=== PATIENT | female | born 2000 | race Caucasian/White ===

== ENCOUNTER 2019-09-20 23:10 | Emergency (ER) | payer MEDICAID, SELFPAY ==
[2019-09-20 23:13] VITALS: BP 126/81; PULSE 107; RESP 16; TEMP 36.6; O2SAT 97; BMI 38.6
--- NOTE | 2019-09-21 00:40 | ED_ITS ---
Entered by Jagruti Wahl, acting as scribe for Rachael Smith Lizy Sep 20, 2019 23:10 HPI - Abdominal Pain General: Chief Complaint: Abdominal Pain Stated Complaint: abd pain Time Seen by Provider: 09/21/19 00:40 Source: patient and family Mode of arrival: ambulatory History of Present Illness: HPI narrative: 19 y/o female presents to the ED with complaint of abd pain for the past 3 days. Pt states it has been constant and she has had N/V/D. Pt denies any recent abx use or abd surgeries. MD elicited complaint: abdominal pain Onset (ago): day(s) (3) Pain Consistency: constant Location: Diffuse and Other Severity: severe Quality: stabbing and sharp Exacerbating factors: movement Relieving factors: nothing Associated Symptoms: Denies chills, dysuria, fever(s), hematuria and syncope Related Data: Date of Last Menstrual Period: 09/09/19 Review of Systems General: Reports: other (negative unless marked) Const: Denies: fever, chills, body aches, fatigue, malaise or diaphoresis Eyes: Denies: change in vision or blurry vision ENMT: Denies: throat pain, painful swallowing, hoarseness, ear pain, ear discharge, Change in hearing or nasal discharge Card: Denies: chest pain, palpitations, irregular heart rhythm, syncope, pre- syncope, shortness of breath on exertion or shortness of breath when lying down Resp: Denies: shortness of breath, productive cough, non-productive cough, wheezing, coughing up blood or chest congestion : Denies: flank pain, painful urination, urinary frequency, urinary urgency, decreased urine ouput, urinary incontinence or blood in urine Musc: Denies: neck pain, back pain, extremity pain, extremity swelling, joint pain, joint swelling, joint warmth or joint stiffness Skin/Breast: Denies: rash, skin tenderness or yellow skin Neuro: Denies: headache, numbness in extremities, weakness in extremities, changes in sensation, lack of coordination, difficulty walking, dizziness, vertigo or confusion Endo: Denies: excessive thirst, tired all the time, cold intolerance, excessive sweating, flushing or hot flashes Andrea/Lymph: Denies: easy bruising, easy bleeding, petechiae or enlarged lymph nodes All/Imm: Denies: hives, throat swelling, tongue swelling, facial swelling or acute wheezing PFSH ED PFSH: Social History Smoking and tobacco status: never smoked Female Reproductive History: Date of last menstrual period: 09/09/19 Physical Exam Const: EXAM LIMITATIONS: no altered mental status GENERAL APPEARANCE: well kempt and well developed ORIENTATION/CONSCIOUSNESS: Yes awake HENMT: COMMON NORMALS: normocephalic, head/scalp atraumatic, hearing grossly normal bilaterally, external ears normal, EAC's normal, external nose normal and moist oral mucous membranes HEAD & SCALP: normal to inspection, normocephalic and atraumatic FACE & SINUS: normal facial exam and face symmetric NOSE: external nose normal and nares normal EXTERNAL EAR: Yes external ears normal EXTERNAL AUDITORY CANAL: EAC's normal MOUTH: oral and palatal mucosa normal and tongue normal Eye: COMMON NORMALS: PERRL, EOMs intact bilaterally, conjunctivae normal and no scleral icterus GENERAL EYE: normal appearance of both eyes and normal light reflex CONJUNCTIVA: Yes conjunctivae normal SCLERA: sclerae normal CORNEA: Yes corneas normal PUPIL: Yes PERRL DIRECT OPHTHALMOSCOPY: Yes normal light reflex Neck/C-Spine: COMMON NORMALS: full ROM, no lymphadenopathy, supple, no meningeal signs and no JVD GENERAL: Yes normal visual inspection and Yes trachea midline CERVICAL SPINE: Yes cervical ROM normal Chest: COMMONS NORMALS: inspection of chest normal and palpation of chest normal Resp: COMMON NORMALS: normal respiratory effort, no retractions, no use of accessory muscles and clear to auscultation bilaterally EFFORT & INSPECTION: Yes able to speak in complete sentences AUSCULTATION: clear to auscultation bilaterally Cardio: COMMON NORMALS: no JVD, regular rate, regular rhythm, S1 normal heart sound, S2 normal heart sound, no gallops, no clicks, no murmurs and no rub JUGULAR VENOUS DISTENTION: no JVD RATE: regular rate RHYTHM: regular rhythm HEART SOUNDS: S1 normal and S2 normal : COMMON NORMALS: Yes no CVA tenderness BLADDER/KIDNEY EXAM: Yes no CVA tenderness Back/Pelvis: COMMON NORMALS: no CVA tenderness, thoracic and lumbar spine no rmal to inspection, no thoracic nor lumbar tenderness and thoraco-lumbar ROM normal Extremity: COMMON NORMALS: normal to inspection, full ROM, normal capillary refill, no joint enlargement, no clubbing, cyanosis or edema and no calf tenderness Neuro: COMMON NORMALS: CN's II-XII intact bilaterally, moves all extremities, no focal motor deficits and no sensory deficits noted MENINGEAL SIGNS: Yes no meningeal signs Psych: COMMON NORMALS: mental status grossly normal, thought process normal, cooperative, affect normal, speech normal and activity/motor behavior normal APPEARANCE: Yes well kempt SPEECH: Yes normal speech THOUGHT PROCESS: normal thought process Skin: COMMON NORMALS: no rashes or lesions noted, skin turgor normal, no jaundice, no petechiae and no mottling GENERAL SKIN EXAM: no rashes or lesions noted and turgor normal Course Vital Signs: Vital signs: Vital Signs Temperature 97.8 F 09/20/19 23:13 Pulse Rate 112 H 09/21/19 05:30 Respiratory Rate 18 09/21/19 04:45 Blood Pressure 124/91 09/21/19 05:30 Pulse Oximetry 97 09/21/19 05:30 MDM - Abdominal Pain MDM Narrative: Medical decision making narrative: The patient's case was reviewed with Dr. Casillas, he states the patient will need an ERCP regardless as she has a dilated common bile duct. If her obstruction is not caused by a stone that it is some type of mass or stricture and she will need an ERCP to remove the stone or stent whatever is causing a blockage. With the entirety of her picture it is most likely stone that is just not visualized. He believes the patient will need transferred and an MRCP is not indicated. I reviewed the case in full with Dr. Gaviria at [facility] and he will accept the patient in transfer. Lab Data: Attestation: I reviewed the patient's lab results. Labs: Lab Results 09/21/19 09/21/19 09/21/19 Range/Units 00:45 00:45 00:45 WBC 9.9 (4.0-10.0) 10^3/ uL RBC 4.80 (4.1-5.3) 10^6/u L Hgb 13.1 (11.5-15.3) g/dL Hct 40.3 (37.0-47.0) % MCV 84.0 (81-99) fL MCH 27.3 L (28.0-34.0) pg MCHC 32.5 (30.0-36.0) g/dL RDW 12.3 (12.1-15.1) % Plt Count 255 (130-400) 10^3/c mm MPV 11.3 H (7.4-10.4) fL Neut % (Auto) 73.4 % Lymph % (Auto) 18.6 % Anderson % (Auto) 7.0 % Eos % (Auto) 0.4 % Baso % (Auto) 0.4 % Neut # (Auto) 7.3 (1.8-7.7) 10^3/u L Lymph # (Auto) 1.9 (0.8-4.8) 10^3/u L Anderson # (Auto) 0.7 (0.2-0.9) 10^3/u L Eos # (Auto) 0.0 (0.0-0.8) 10^3/u L Baso # (Auto) 0.0 (0.0-0.1) 10^3/u L Nucleated RBC % (a uto) 0 % Nucleated RBCs # 0.0 /100WBC Sodium 140 (136-145) mmol/L Potassium 4.3 (3.5-5.1) mmol/L Chloride 103 (98-107) mmol/L Carbon Dioxide 25 (22-29) mmol/L Anion Gap 16.3 (5-19) BUN 9 (6-20) mg/dL Creatinine 0.5 (0.5-0.9) mg/dL GFR Calculation 155.7 H (90-130) mL/min Glucose 178 H (65-115) mg/dL Lactic Acid (0.5-2.2) mmol/L Calcium 9.6 (8.5-10.5) mg/dL Total Bilirubin 2.3 H (0.15-1.2) mg/dL AST 345 H (0-32) U/L ALT 528 H (0-33) U/L Alkaline Phosphata se 99 (35-105) IU/L Total Protein 7.5 (6.6-8.7) g/dL Albumin 3.7 (3.5-5.2) g/dL Globulin 3.8 (1.3-4.6) g/dL Lipase 2818 H (13-60) U/L HCG, Qual Negative (Negative) Urine Color (Yellow) Urine Appearance (CLEAR) Urine pH (5-7) Ur Specific Gravit y (1.005-1.030) Urine Protein (Negative) Urine Glucose (UA) (Normal) Urine Ketones (Negative) Urine Blood (Negative) Urine Nitrate (Negative) Urine Bilirubin (NEGATIVE) Urine Urobilinogen (Negative) mg/dL Ur Leukocyte Sinai ase (Negative) Urine RBC (0-2) /hpf Urine WBC (0-5) /hpf Ur Squamous Epith Cells (0-5) Urine Bacteria (NONE) 09/21/19 09/21/19 Range/Units 00:57 02:53 WBC (4.0-10.0) 10^3/ uL RBC (4.1-5.3) 10^6/u L Hgb (11.5-15.3) g/dL Hct (37.0-47.0) % MCV (81-99) fL MCH (28.0-34.0) pg MCHC (30.0-36.0) g/dL RDW (12.1-15.1) % Plt Count (130-400) 10^3/c mm MPV (7.4-10.4) fL Neut % (Auto) % Lymph % (Auto) % Anderson % (Auto) % Eos % (Auto) % Baso % (Auto) % Neut # (Auto) (1.8-7.7) 10^3/u L Lymph # (Auto) (0.8-4.8) 10^3/u L Anderson # (Auto) (0.2-0.9) 10^3/u L Eos # (Auto) (0.0-0.8) 10^3/u L Baso # (Auto) (0.0-0.1) 10^3/u L Nucleated RBC % (a uto) % Nucleated RBCs # /100WBC Sodium (136-145) mmol/L Potassium (3.5-5.1) mmol/L Chloride (98-107) mmol/L Carbon Dioxide (22-29) mmol/L Anion Gap (5-19) BUN (6-20) mg/dL Creatinine (0.5-0.9) mg/dL GFR Calculation (90-130) mL/min Glucose (65-115) mg/dL Lactic Acid 0.9 (0.5-2.2) mmol/L Calcium (8.5-10.5) mg/dL Total Bilirubin (0.15-1.2) mg/dL AST (0-32) U/L ALT (0-33) U/L Alkaline Phosphata se (35-105) IU/L Total Protein (6.6-8.7) g/dL Albumin (3.5-5.2) g/dL Globulin (1.3-4.6) g/dL Lipase (13-60) U/L HCG, Qual (Negative) Urine Color Dark yellow (Yellow) Urine Appearance Clear (CLEAR) Urine pH 5 (5-7) Ur Specific Gravit y 1.025 (1.005-1.030) Urine Protein Neg (Negative) Urine Glucose (UA) Norm (Normal) Urine Ketones Negative (Negative) Urine Blood 2+ H (Negative) Urine Nitrate Negative (Negative) Urine Bilirubin 2+ H (NEGATIVE) Urine Urobilinogen 4 H (Negative) mg/dL Ur Leukocyte Sinai ase Negative (Negative) Urine RBC 5-10 H (0-2) /hpf Urine WBC None (0-5) /hpf Ur Squamous Epith Cells 15-25 H (0-5) Urine Bacteria 1+ H (NONE) Imaging Data ^: CT Abd/Pel: Radiologist's impression: [place] [address] CT Scan Report Signed Patient: Adan Jade #: [id number] : 2000Acct#:[id number] Age/Sex: 19 / FADM Date: 09/20/19 [facility] Attending Dr: Ordering Provider/Ordering MD: Rachael Smith DO Date of Service: 09/21/19 Procedure(s): CT abdomen pelvis w con* [id number] Accession Number(s): [id number] Report Number: [id number] PROCEDURE INFORMATION: Exam: CT Abdomen And Pelvis With Contrast Exam date and time: 09/21/2019 1:23 AM Age: 19 years old Clinical indication: Abdominal pain; Generalized TECHNIQUE: Imaging protocol: Computed tomography of the abdomen and pelvis with intravenous contrast. Total DLP: 1689 mGy-cm Radiation optimization: All CT scans at this facility use at least one of these dose optimization techniques: automated exposure control; mA and/or kV adjustment per patient size (includes targeted exams where dose is matched to clinical indication); or iterative reconstruction. Contrast material: OMNI 300; Contrast volume: 95 ml; Contrast route: 20G; COMPARISON: No relevant prior studies available. FINDINGS: Liver: Normal. No mass. Gallbladder and bile ducts: The gallbladder appears normal. No radiopaque gallstone is seen. However, the common bile duct is dilated measuring up to 12 mm. Pancreas: Peripancreatic fat stranding and fluid are appreciated. No pancreatic ductal dilatation. Spleen: Normal. No splenomegaly. Adrenals: Normal. No mass. Kidneys and ureters: Normal. No hydronephrosis. Stomach and bowel: Unremarkable. No obstruction. No mucosal thickening. Appendix: The appendix is normal. Intraperitoneal space: Unremarkable. No free air. No significant fluid collection. Vasculature: Unremarkable. No abdominal aortic aneurysm. Lymph nodes: Unremarkable. No enlarged lymph nodes. Bladder: Unremarkable as visualized. Reproductive: Unremarkable as visualized. Bones/joints: Unremarkable. No acute fracture. Soft tissues: Unremarkable. CT/CT abdomen pelvis w con* [id number] IMPRESSION: 1. Acute pancreatitis. 2. Common bile duct dilatation is noted. Consider MRCP for further assessment. Radiation Dose CTDIVOL = (mGy): DLP = 1689 (mGy-cm) US: My impression: Ultrasound gallbladder, technologist interpretation -gallbladder wall thickened at 5 mm, gallbladder full of stones. No pericholecystic fluid. Common bile duct dilated at 1.3 cm. Discharge Plan Discharge Patient Disposition: Xfer Short-Term Hosp Clinical Impression: Acute cholecystitis Pancreatitis Qualifiers: Chronicity: acute Pancreatitis type: biliary Acute pancreatitis complication: unspecified Qualified Code(s): K85.10 - Biliary acute pancreatitis without necrosis or infection Condition: Stable Referrals: Jenni Galloway [Family Provider] - Alexandria Whiteside FNP [Primary Care Provider] - Discharge Date/Time: 09/21/19 06:17 Coding Level of Care Code ED Sat Math Tutor for Chg Fwd Exam Comprehensive The documentation recorded by the Vish gerard Ashley, accurately reflects the service I personally performed and the decisions made by Luis newell Eli N Sep 20, 2019 23:10
--- NOTE | 2019-09-21 00:44 | CTR_ITS ---
PROCEDURE INFORMATION: Exam: CT Abdomen And Pelvis With Contrast Exam date and time: 09/21/2019 1:23 AM Age: 19 years old Clinical indication: Abdominal pain; Generalized TECHNIQUE: Imaging protocol: Computed tomography of the abdomen and pelvis with intravenous contrast. Total DLP: 1689 mGy-cm Radiation optimization: All CT scans at this facility use at least one of these dose optimization techniques: automated exposure control; mA and/or kV adjustment per patient size (includes targeted exams where dose is matched to clinical indication); or iterative reconstruction. Contrast material: OMNI 300; Contrast volume: 95 ml; Contrast route: 20G; COMPARISON: No relevant prior studies available. FINDINGS: Liver: Normal. No mass. Gallbladder and bile ducts: The gallbladder appears normal. No radiopaque gallstone is seen. However, the common bile duct is dilated measuring up to 12 mm. Pancreas: Peripancreatic fat stranding and fluid are appreciated. No pancreatic ductal dilatation. Spleen: Normal. No splenomegaly. Adrenals: Normal. No mass. Kidneys and ureters: Normal. No hydronephrosis. Stomach and bowel: Unremarkable. No obstruction. No mucosal thickening. Appendix: The appendix is normal. Intraperitoneal space: Unremarkable. No free air. No significant fluid collection. Vasculature: Unremarkable. No abdominal aortic aneurysm. Lymph nodes: Unremarkable. No enlarged lymph nodes. Bladder: Unremarkable as visualized. Reproductive: Unremarkable as visualized. Bones/joints: Unremarkable. No acute fracture. Soft tissues: Unremarkable. CT/CT abdomen pelvis w con* [id number] IMPRESSION: 1. Acute pancreatitis. 2. Common bile duct dilatation is noted. Consider MRCP for further assessment. Radiation Dose CTDIVOL = (mGy): DLP = 1689 (mGy-cm)
[2019-09-21 00:53] LABS: Basophils % 0.4 %; Eosinophils % 0.4 %; Hematocrit 40.3 % (37.0-47.0); Hemoglobin 13.1 g/dL (11.5-15.3); Lymphocytes # 1.9 10^3/uL (0.8-4.8); Lymphocytes % 18.6 %; Mean Corpuscular HGB Conc 32.5 g/dL (30.0-36.0); Mean Corpuscular Hemoglobin 27.3 pg (28.0-34.0); Mean Platelet Volume 11.3 fL (7.4-10.4); Monocytes # 0.7 10^3/uL (0.2-0.9); Neutrophils # 7.3 10^3/uL (1.8-7.7); Neutrophils % 73.4 %; Nucleated Red Blood Cells % 0 %; Platelet Count 255 10^3/cmm (130-400); Red Cell Distribution Width 12.3 % (12.1-15.1); White Blood Count 9.9 10^3/uL (4.0-10.0)
[2019-09-21] MEDS: sodium chloride 0.9% 1,000 ML 100 ML IV (00:58)
[2019-09-21] MEDS: HYDROmorphone 1 mg/mL INJ 1 mL 0.5 MG IVP (00:59)
[2019-09-21] MEDS: ondansetron 2 mg/ML SDV 2 mL 4 MG IVP (01:00)
[2019-09-21 01:06] LABS: Alanine Aminotransferase 528 U/L (0-33); Albumin Level 3.7 g/dL (3.5-5.2); Alkaline Phosphatase 99 IU/L (35-105); Anion Gap 16.3 (5-19); Aspartate Amino Transferase 345 U/L (0-32); Blood Urea Nitrogen 9 mg/dL (6-20); Calcium 9.6 mg/dL (8.5-10.5); Carbon Dioxide 25 mmol/L (22-29); Chloride 103 mmol/L (98-107); Globulin 3.8 g/dL (1.3-4.6); Glomerular Filtration Rate 155.7 mL/min (90-130); Glucose 178 mg/dL (65-115); Potassium 4.3 mmol/L (3.5-5.1); Sodium 140 mmol/L (136-145); Total Bilirubin 2.3 mg/dL (0.15-1.2); Total Protein 7.5 g/dL (6.6-8.7)
[2019-09-21 01:35] LABS: Bilirubin Urine 2+ (NEGATIVE); Blood Urine 2+ (Negative); Glucose Urine UA Norm (Normal); Ketones Urine Negative (Negative); Leukocyte Esterase Urine Negative (Negative); Nitrate Urine Negative (Negative); Protein Urine Neg (Negative); Specific Gravity, Urine 1.025 (1.005-1.030); Urine Appearance Clear (CLEAR); Urobilinogen Urine 4 mg/dL (Negative); pH Urine 5 (5-7)
[2019-09-21 01:36] LABS: Urine Color Dark Yellow (Yellow)
[2019-09-21 01:37] LABS: Add Urine Culture? No; Bacteria Urine 1+; Squamous Epithelial Cell Urine 15-25 (0-5)
[2019-09-21 01:39] LABS: HCG, Serum Qual Negative (Negative)
--- NOTE | 2019-09-21 01:53 | US_ITS ---
WS: [id number] Abdomen ultrasound, 09/21/2019 Clinical Data: Abdominal Pain Comparison: None. Findings: The pancreas shows no cyst, pseudocyst or evidence of pancreatitis but is not well seen. The liver shows no cysts, masses or dilated intrahepatic ducts. The gallbladder has numerous stones. The wall measures 5.4 mm with no pericholecystic fluid. The comm on bile duct is 13.8 mm and no intraductal abnormalities are noted. The right kidney is 10.3 cm. No cysts, masses or hydronephrosis is seen. The left kidney is 11.5 cm. No cysts, masses or hydronephrosis is seen. The abdominal aorta is not dilated and the inferior vena cava has normal flow. No vascular abnormalit ies are seen. The spleen measures 11.5 cm and there are no intrasplenic masses are capsular abnormalities. US/US abdomen complete* [id number] Impression: 1. Cholelithiasis. 2. Thickened gallbladder wall which can be seen with acute and/or chronic irineo cystitis.
[2019-09-21] MEDS: iohexol 300 mg/mL 100 mL Btl IV (02:14)
[2019-09-21 02:20] LABS: Lipase 2818 U/L (13-60)
[2019-09-21] MEDS: HYDROmorphone 1 mg/mL INJ 1 mL IVP ×3 (02:41→06:10)
[2019-09-21 02:45] VITALS: BP 145/89; PULSE 85; O2SAT 95
--- NOTE | 2019-09-21 02:56 | PC.NURSE ---
PORTABLE ULTRASOUND AT BEDSIDE
[2019-09-21 03:13] LABS: Lactic Sepsis W/Reflex 0.9 mmol/L (0.5-2.2)
[2019-09-21 03:52] VITALS: BP 128/78; PULSE 107; O2SAT 94
[2019-09-21] MEDS: piperacillin-tazobactam 3.375 GM in sodium chloride 0.9% (plus) 50 ML IV (04:11)
[2019-09-21 04:45] VITALS: BP 136/83; PULSE 109; RESP 18; O2SAT 92
[2019-09-21 05:30] VITALS: BP 124/91; PULSE 112; O2SAT 97
--- NOTE | 2019-09-21 06:10 | PC.NURSE ---
1mg hydromorphone sent with EMS for pt administration per verbal order of Dr. Smith
== END 2019-09-21 06:17 | disposition short-term general hospital (02) ==
PROVIDERS: Emergency Provider Emergency Medicine; Family Provider Counselor Professional; PCP Nurse Practitioner Family
DX: K80.00 Calculus of gallbladder with acute cholecystitis without obstruction (principal); K85.90 Acute pancreatitis without necrosis or infection, unspecified; K83.8 Other specified diseases of biliary tract
CPT/HCPCS: 36415; 74177; 76700; 80053; 81001; 83605; 83690; 84703; 85025; 96360; 96361; 96365; 96366; 96374; 96375; 99283; J0131; J1170; J2405; J2543; J7030; Q9967